=== PATIENT | female | born 1970 | race Asian ===

== ENCOUNTER 2025-01-15 08:47 | Outpatient (AMB) | payer OTHER, SELFPAY ==
--- NOTE | 2025-01-15 08:51 | MHC.OFFVIS ---
Vital Signs 01/15/25 08:54 Height 4 ft 11 in Weight 108 lb BMI 21.8 BP 130/70 Blood Pressure Location Lt brachial Position Sitting Pulse 61 Intake Visit Reasons: Colonoscopy Screening Intake Note: Patient new consult for 3rd pre Colonoscopy screening. Patient cc: GERD on and off, abdominal cramps, diarrhea on and off, also patient is dx with Achalasia and have a surgery in 2016. Pulp Screen Operator Required: No Accompanied by: Self / Same As Patient Allergies penicilin Allergy (Mild, Uncoded 01/15/25 08:50) Unknown Medication List - Last Reconciled 01/15/25 by Amy Amanda CNP multivitamin 1 tab PO DAILY topiramate 50 mg PO BEDTIME HPI HPI Colonoscopy Screening: Details: Patient is a 54-year-old female with PMH of migraines, seizure disorder. Referred by [place] provider for pre colonoscopy screening. Last colonoscopy: 2015, polyps noted; prior colonoscopy in [place], [place], and at [place] (dates unspecified). Endorses year-long hx of alternating constipation and diarrhea, with episodes of diarrhea occurring several times per week and constipation managed with milk of magnesia PRN. Reports escalation in heartburn and reflux sx, now ~2x/wk, and progressive dysphagia, primarily to solids, with recent difficulty swallowing semi-solids (e.g., pudding). Nausea has increased over past 3?6 mos, with rare emesis (last ~2 wks ago). No significant unintentional wt loss; wt stable at 108 lbs per pt. Subjective hx of achalasia (dx 2016, s/p surgical intervention), prior polyps on colonoscopy (2016), and unconfirmed Crohn?s dz (managed with diet, no resection). No recent GI hospitalizations. Reports post-anesthesia intolerance with prior ED visits for nausea/emesis post-op. No known family hx of colon or stomach CA; mother with diverticular dz. No tobacco, alcohol, or recreational drug use reported. Patient denies: fever/chills, appetite changes, regurgitation or melena/hematochezia. Social hx: -ETOH use couple x/month -denies recreational drug use -non-smoker - family hx as below -denies significant cardiopulmonary history -post sedation/anesthesia nausea and vomiting, otherwise tolerated without difficulty. [facility] Medical History (Updated 01/15/25 @ 10:16 by Amy Amanda CNP) Dysphagia Change in stool Colon cancer screening Surgical History (Updated 01/15/25 @ 09:05 by Pari Sanford) Hx of myomectomy H/O esophagogastroduodenoscopy History of hysterectomy Family History (Updated 01/15/25 @ 09:37 by Amy Amanda CNP) Mother Diverticular disease of colon Social History (Updated 01/15/25 @ 08:53 by Pari Sanford) Household Members: Family Alcohol intake: never Patient Tobacco Use Status: Never used Tobacco Physical Exam Vital Signs: Last Vital Signs Pulse 61 01/15/25 08:54 BP 130/70 01/15/25 08:54 BMI result Body Mass Index 21.8 Const General: healthy appearing, no acute distress and well developed Nutritional Appearance: average body habitus Orientation/consciousness: patient oriented x3 HEENT Head: Yes normal to inspection, Yes normocephalic and Yes atraumatic Face and sinus: Yes normal facial exam Eyes General: appearance normal, both eyes and all related structures Neck Neck: Yes normal visual inspection Resp Effort & Inspection: normal respiratory effort, able to speak in complete sentences, no tracheal deviation and symmetric chest movement Cardio Jugular venous distension: no JVD GI Inspection: Yes normal to inspection and No distended Palpation (GI): Soft to palpation, not firm, nontender and No hepatosplenomegaly present Auscultation: normal bowel sounds Neuro General: patient oriented x3 Gait exam (Neuro): Normal gait present Psych Appearance: grossly normal Mental Status: mental status grossly normal Speech and movement: Normal speech and movement present Affect: normal affect Attitude: cooperative Thought process: Normal thought process present Thought content: Normal thought content present Insight: Good insight present (Psych) Judgement: Good judgement present (Psych) Assessment & Plan Assessment & Plan (1) Colon cancer screening: Code(s): Z12.11 - Encounter for screening for malignant neoplasm of colon Category: Medical Plan: Due for CRC screening; personal hx of polyps, family hx diverticular dz, no confirmed CRC. Hx post-op nausea/emesis, ED visits post-anesthesia. Additional Testing: - Colonoscopy and upper endoscopy scheduled for CRC screening and further GI evaluation. Medications: - Premedication for antiemesis to be requested for sedation. Lifestyle Recommendations: - Encourage communication with anesthesia provider re: hx. Referrals / Coordination of Care: - Communicated to procedural team, premedication order placed. Follow-Up Plan: - Monitor immediate post-procedural course; assess for further intervention if recurrent. - Review colonoscopy/EGD results for CRC risk stratification and further management. (2) Change in stool: Code(s): R19.5 - Other fecal abnormalities Category: Medical Plan: Chronicity, previous polyps, dietary triggers?rule out IBD, infection, celiac. Additional Testing: - CBC, CMP, TSH: r/o metabolic contributors. - Celiac serology panel. - Stool studies (ova/parasites, C. diff, fecal calprotectin as indicated): r/o infection, inflammation. Medications: - Continue milk of magnesia PRN for constipation (pt satisfied with efficacy). - Offer Miralax as alternative for bowel regularity. Lifestyle Recommendations: - Maintain adequate hydration. - Increase dietary fiber as tolerated. - Avoid trigger foods and colored drinks before colonoscopy (per packet). - Provided pt education/packet for bowel prep and dietary guidance. Referrals / Coordination of Care: - Colonoscopy scheduled, upper endoscopy to be performed concurrently. Follow-Up Plan: - No routine f/u until post-procedural results unless abnormal labs or worsening sx. - Pt to contact office with significant changes or concerns. (3) Dysphagia: Code(s): R13.10 - Dysphagia, unspecified Category: Medical Qualifiers: Dysphagia type: unspecified Qualified Code(s): R13.10 - Dysphagia, unspecified Plan: Worsening dysphagia to solids, occasional swallowing difficulty with semi-solids (e.g., pudding); increasing reflux sx, rare emesis. Hx of surgical intervention, now increasing obstructive symptoms; requires direct visualization. Additional Testing: - Upper endoscopy to assess for stricture, progression, or other pathology. - Will consider swallow study if EGD unyielding. Medications: - None initiated/changed at this time for motility. Lifestyle Recommendations: - Continue reflux avoidance strategies: elevate HOB, avoid late-night meals, limit acidic and gplklhqfo-ca-lpltnlc foods. Referrals / Coordination of Care: - EGD scheduled, concurrent with colonoscopy. Follow-Up Plan: - Review findings after procedure; reassess tx approach if anatomic progression or new findings. (4) GERD (gastroesophageal reflux disease): Code(s): K21.9 - Gastro-esophageal reflux disease without esophagitis Category: Medical Qualifiers: Esophagitis presence: esophagitis presence not specified Qualified Code(s): K21.9 - Gastro-esophageal reflux disease without esophagitis Plan: Heartburn present ~2x/wk; managed by dietary restriction, no routine acid-suppressive meds used. Additional Testing: - Assessment during EGD. Medications: - Not started; consider trial of H2 collette or PPI post-endoscopy if indicated by findings/sx severity. Lifestyle Recommendations: - Reinforce symptom diary to monitor flare patterns. - Continue dietary modification, avoid acidic/irritant foods. Referrals / Coordination of Care: - None indicated at this time. Plan Follow-up after endoscopy or sooner as needed Time: I spent a total of 32 minutes on the date of encounter which includes: Preparing to see the patient (reviewed previous documentation, test results and medical history) Performing a medically appropriate exam and/or evaluation Ordering medications, tests, and procedures Documenting clinical information in the health record Orders: Orders C Reactive Protein Today R19.5 - Other fecal abnormalities Calprotectin, Fecal Today R19.5 - Other fecal abnormalities Fecal Fat Qualitative Today R19.5 - Other fecal abnormalities Leukocytes Stool Qualitative Today R19.5 - Other fecal abnormalities Complete Blood Count Auto Diff Today R19.5 - Other fecal abnormalities Transglutaminase IgA Today R19.5 - Other fecal abnormalities TSH reflex Free T4 Today R19.5 - Other fecal abnormalities GI Panel Today R19.5 - Other fecal abnormalities Comprehensive [place]. Panel Fast Today R19.5 - Other fecal abnormalities Referrals GI Procedure Notification K21.9 - Gastro-esophageal reflux disease without esophagitis, R19.5 - Other fecal abnormalities, Z12.11 - Encounter for screening for malignant neoplasm of colon, Z87.898 - Personal history of other specified conditions Medications: New polyethylene glycol 3350 (Miralax) per colonoscopy prep instructions 238 grams PO ONCE 238 grams 0RF bisacodyl take four tablets once day of colonoscopy prep 20 mg (4 x 5 mg) PO ONCE 4 tabs 0RF Coding Level of Care Code New Pt New Pt Level 3 (23535) Patient Type New Diagnoses Colon cancer screening Z12.11 Change in stool R19.5 Dysphagia, unspecified type R13.10 Dysphagia type: unspecified Gastroesophageal reflux disease, unspecified whether esophagitis present K21.9 Esophagitis presence: esophagitis presence not specified
[2025-01-15 08:54] VITALS: BP 130/70; PULSE 61; BMI 21.8
--- OUTSIDE RECORDS SUMMARY | 2025-01-15 08:57 | XMS_ITS | Clinical Summary ---
Author Organization [address] [facility] Address [address] [place] [address] Phone Care Team Providers Care Penal Officer Name Role Phone Krupa Frey NP Primary Care Provider Medications polyethylene glycol (Golytely) 236-22.74-6.74 -5.86 gram solution Take 4L by mouth once for one dose. May substitue any PEG. Starting at 6PM the night before your procedure drink 1 8oz glasses at your own pace until you complete half of the gallon. Finish 2nd half of the gallon 5 hours before your procedure. 4000 mL 5 Active bisacodyL (DULCOLAX) 5 mg EC tablet Take 2 tablets by mouth right before beginning bowel prep. See instructions provided by the office 2 tablet 5 Active Social History Tobacco Use Types Packs/Day Years Used Date Smoking Tobacco: Never Assessed Comments Unknown Sex and Gender Information Value Date Recorded Sex Assigned at Not on file Legal Sex Female 11:39 AM EDT Gender Identity Not on file Sexual Orientation Not on file Plan of Treatment Health Maintenance Due Date Last Done Comments Breast Cancer Screening 1970 Colorectal Cancer Screening: Colonoscopy 1970 DTaP,Tdap,and Td Vaccines (1 - Tdap) 1989 Hepatitis B Vaccines (1 of 3 - 19+ 3-dose series) 1989 Cervical Cancer Screening: P ap Smear 05/16/1991 Pneumococcal Vaccine: 50+ Ye ars (1 of 1 - PCV) 2020 Zoster Vaccines (1 of 2) 2020 HIV Screening 12/06/2023 Hepatitis C Screening 12/06/2023 Social Influencers of Health Screening 12/06/2023 Depression Screening 02/15/2024 COVID-19 Vaccine (1 - 2024-2 6 season) 2024 Influenza Vaccine (#1) 2024 RSV Immunization Adult Patie nts (1 - 1-dose 75+ series) 2045 HIB Vaccines Aged Out No longer eligi ble based on patient's age to complete this topic HPV Vaccines Aged Out No longer eligi ble based on patient's age to complete this topic Hepatitis A Vaccines Aged Out No long er eligible based on patient's age to complete this topic IPV Vaccines Aged Out No longer eligi ble based on patient's age to complete this topic MMR Vaccines Aged Out No longer eligi ble based on patient's age to complete this topic Meningococcal ACWY Vaccine Aged Out N o longer eligible based on patient's age to complete this topic Meningococcal B Vaccine Aged Out No l onger eligible based on patient's age to complete this topic RSV Immunization Patients Un ronda 20 months Aged Out No longer eligible b ased on patient's age to complete this topic Varicella Vaccines Aged Out No longer eligible based on patient's age to complete this topic Insurance [facility] Care Teams Penal Officer Relationship Specialty Start Date End Date Krupa Frey NP [address] [place] [phone] PCP - General Family Medicine 12/06/23
--- OUTSIDE RECORDS SUMMARY | 2025-01-15 08:57 | XMS_ITS | Encounter Summary ---
Author Organization [facility] Address [address] [facility] [address] [place] [address] Phone Care Team Providers Care U.[place]. Commissioner Name Role Phone Pcp, Not Required Primary Care Provider Mervin Nance MD Primary Care Provider [phone] Encounter Details Date Type Department Care Team (Late st Contact Info) Description 01/03/2022 Procedure Pass [facility], Ct Scan - [address] [address] Social History Tobacco Use Types Packs/Day Years Used Date Smoking Tobacco: Never Assessed Comments Unknown Sex and Gender Information Value Date Recorded Sex Assigned at Female 01/03/2022 1:25 PM EST Legal Sex Female 5:07 PM EST Gender Identity Female 01/03/2022 1:25 PM EST Sexual Orientation Choose not to disclose 2021 1:25 PM EST documented as of this encounter Functional Status * Calculated C-SSRS Risk Score (Lifetime/Recent) Answer Date of Assessment Author No Risk Indicated 01/05/2022 7:31 PM Leonie Fiore, RN * [place] Suicide Severity Rating Scale (Screener/Recent Self-Report) Question Answer Date of Assessment Author 1. Wish to be (Past 1 Month) No 022 7:31 PM Leonie Torres, RN 2. Non-Specific Active Suici sohail Thoughts (Past 1 Month) No 01/05/2022 7:31 PM Leonie Torres, RN 6. Suicidal Behavior (Lifetime) No 7:31 PM Leonie Torres, RN documented as of this encounter Plan of Treatment Not on file documented as of this encounter Visit Diagnoses Not on filedocumented in this encounter Additional Health Concerns Infection Onset Date Last Indicated Resolved Time CoV-Risk 01/05/2022 01/05/2022 01/16/2022 1:22 AM EST documented as of this encounter Care Teams U.[place]. Commissioner Relationship Specialty Start Date End Date Pcp, Not Required [address] [place] [id number] PCP - General 03/09/13 01/04/22 Mervin Ritter MD [address] [place] [id number] [email or web address] PCP - General Internal Medicine 01/05/22 documented as of this encounter Additional Source Comments The information contained in this document represents components of the legal health record. It is not the complete legal health record.[facility]
--- OUTSIDE RECORDS SUMMARY | 2025-01-15 08:57 | XMS_ITS | Encounter Summary ---
Author Organization [facility] Address [address] [facility] [address] [place] [address] Phone Care Team Providers Care Integration Aide Name Role Phone Pcp, Not Required Primary Care Provider Mervin Nance MD Primary Care Provider [phone] Encounter Details Date Type Department Care Team (Late st Contact Info) Description 01/04/2022 Procedure Pass [place] Admitting Dept - Virtual Department [address] [place] [address] Social History Tobacco Use Types Packs/Day Years Used Date Smoking Tobacco: Former Cigarettes Q uit: 04/14/2006 Smokeless Tobacco: Former Comments No Sex and Gender Information Value Date Recorded Sex Assigned at Female 01/03/2022 1:25 PM EST Legal Sex Female 5:07 PM EST Gender Identity Female 01/03/2022 1:25 PM EST Sexual Orientation Choose not to disclose 2021 1:25 PM EST documented as of this encounter Functional Status * Calculated C-SSRS Risk Score (Lifetime/Recent) Answer Date of Assessment Author No Risk Indicated 01/05/2022 7:31 PM EST Leonie Levy, RN * [place] Suicide Severity Rating Scale (Screener/Recent Self-Report) Question Answer Date of Assessment Author 1. Wish to be (Past 1 Month) No 022 7:31 PM Leonie Torres, RN 2. Non-Specific Active Suici sohail Thoughts (Past 1 Month) No 01/05/2022 7:31 PM Leonie Torres, RN 6. Suicidal Behavior (Lifetime) No 7:31 PM EST Leonie Garcia RN documented as of this encounter Plan of Treatment Not on file documented as of this encounter Visit Diagnoses Not on filedocumented in this encounter Additional Health Concerns Infection Onset Date Last Indicated Resolved Time CoV-Risk 01/05/2022 01/05/2022 01/16/2022 1:22 AM EST documented as of this encounter Care Teams Integration Aide Relationship Specialty Start Date End Date Pcp, Not Required [address] [place] [address] PCP - General 03/09/13 01/04/22 Mervin Ritter MD [address] [place] [id number] [email or web address] PCP - General Internal Medicine 01/05/22 documented as of this encounter Additional Source Comments The information contained in this document represents components of the legal health record. It is not the complete legal health record.[facility]
--- OUTSIDE RECORDS SUMMARY | 2025-01-15 08:57 | XMS_ITS | Encounter Summary ---
Author Organization [facility] Address [address] [facility] [address] [place] [address] Phone Care Team Providers Care Hand Box Coverer Name Role Phone Mervin Ritter MD Primary Care Provider [phone] Encounter Details Date Type Department Care Team (Late st Contact Info) Description 01/05/2022 Procedure Pass [facility], Ct Scan - [address] [address] Social History Tobacco Use Types Packs/Day Years [...] Date of Assessment Author No Risk Indicated 01/08/2022 9:49 AM Jil Kam, ULICES * [place] Suicide Severity Rating Scale (Screener/Recent Self-Report) Question Answer Date of Assessment Author 1. Wish to be (Past 1 Month) No 022 9:49 AM Jil Kam, ULICES 2. Non-Specific Active Suici sohail Thoughts (Past 1 Month) No 01/08/2022 9:49 AM Jil Kam, RN 6. Suicidal Behavior (Lifetime) No 9:49 AM Jil Kam, RN documented as of this encounter Plan of Treatment Not on file documented as of this encounter Visit Diagnoses Not on filedocumented in this encounter Additional Health Concerns Infection Onset Date Last Indicated Resolved Time CoV-Risk 01/05/2022 01/05/2022 01/16/2022 1:22 AM EST documented as of this encounter Care Teams Hand Box Coverer Relationship Specialty Start Date End Date Mervin Ritter MD [address] [place] [address] [email or web address] PCP - General Internal Medicine 01/05/22 documented as of this encounter Additional Source Comments The information contained in this document represents components of the legal health record. It is not the complete legal health record.[facility]
--- OUTSIDE RECORDS SUMMARY | 2025-01-15 08:57 | XMS_ITS | Clinical Summary ---
Author Organization [facility] Address [address] [place] [address] Phone Care Team Providers Care [employer] Name Role Phone Mervin iRtter MD Primary Care Provider [phone] Allergies Active Allergy Reactions Criticality Noted Date Comments Hazelnut Itching,Nausea Only 12/30/2010 Iodinated Contrast Media Hives High 09/23/2012 Lincosamides 01/23/2001 urticaria/diarrhea from clindamycin Pantoprazole 01/23/2013 Other reaction(s): Headache Penicillins Anaphylaxis,Seizure s High 04/28/2005 Pollen Extracts Other (See Comments) Low 12/16/2020 Dry nasal mucosa and congestion Medications estrogens, conjugated, (PREMARIN) 0.3 MG tablet Take 0.3 mg by mouth daily. Take daily for 21 days then do not take for 7 days. Active docusate sodium (COLACE) 100 MG capsule Take 1 capsule (100 mg total) by mouth 2 (two) times a day. 60 capsule 6 2 Active topiramate (TOPAMAX) 50 MG tablet Take 1 tablet by mouth 2 (two) times a day. 1 Active tiZANidine (ZANAFLEX) 2 MG tablet Take 1 tablet by mouth daily. 2 Active SUMAtriptan (IMITREX) 50 MG tablet Take 50 mg by mouth as needed. 1 Active rizatriptan (MAXALT-WATCH TRAIN INSPECTOR) 10 MG disintegrating tablet 10 mg. 2 Active hydrOXYzine (VISTARIL) 25 MG capsule Take 25 mg by mouth as needed. 2 Active polyvinyl alcohol-povidone, PF, (REFRESH CLASSIC) 1.4-0.6 % Dpet INSTILL ONE DROP IN BOTH EYES FOUR TIMES A DAY NEEDED FOR DRY EYES 2 Active magnesium hydroxide (MOM CONCENTRATED) 2,400 mg/10 mL Susp Active Active Problems Problem Noted Date Diagnosed Date S/P laparoscopic appendectomy 01/11/2022 Postoperative pain 01/04/2022 Immunizations Immunization Administration Dates Next Due Anthrax 10/28/2013, 1,04/05/2009,02/16,08/08/2006,09/15/2003,08/27/2003 ,08/05/2003 COVID-19 (Pre-12/06) Moderna Vaccine, Bivalent 6mo+ 12/29/2021 COVID-19 (Pre-12/06) Moderna Vaccine, mRNA, PF 07/02/2021,01/19/2021,07/08/2020,06/10 DTaP, unspecified formulation 03/05/2010 [id number] FORMULATION 01/14/2009 Hep A-Hep B 02/18/2004,07/20/2003,06/02/2003 INFLUENZA, SPLIT VIRUS, TRIVALENT PF 10/25/2015, 12/27/2014 INFLUENZA, SPLIT VIRUS, TRIV ALENT W/ PRESERVATIVE IM 11/22/2018,11/30/2017,11/04/2016,03/02,02/22/2013 IPV 06/02/2003 Influenza Quadrivalent Prese rvative Free IM 12/29/2021,10/28/2013 Influenza Split (Incl. Purif ied Surface Antigen) 11/28/2009,03/25/2006,12/18/2003 Influenza quadrivalent nasal 09/30/2010,10/27/19 09,12/08/2006 Influenza trivalent preserva tive free intradermal 05/12/2012 Influenza, Unspecified Formulation 11/24,01/22/2020,02/15/2016,12/27,11/14/2013,10/27/2013,02/14/2013 ,11/15/2011,11/14/2010,10/17/2010 MMR 07/28/2012,06/02/2003 Meningococcal MPSV4 06/02/2003 Novel [id number], Injectable 04/05/2009 Smallpox 08/05/2003 Td (adult),2 Lf Tetanus Toxo id, PF, Adsorbed 06/02/2003 Td, unspecified formulation 11/14/2009, 0 Tdap 10/21/2021,03/05/2010,08/15/2009 Typhoid, ViCPs 05/28/2009,08/08/2006,06/02/2003 Yellow Fever 06/02/2003 Zoster recombinant 10/21/2021 Family History Medical History Relation Comments CV disease Mother 2 Hypertension Mother 2 Relation Status Comments Mother 1 Alive Mother 2 Social History Tobacco Use Types Packs/Day Years Used Date Smoking Tobacco: Former Cigarettes Q uit: 04/14/2006 Smokeless Tobacco: Former Tobacco Cessation:Counseling Given: Not Answered Education Answer Date Recorded Are you interested in more education? Not on erika e 06/13/2022 Are you concerned about learning? Not on file 06/13/2022 No 06/13/2022 No 06/13/2022 Digital Access Answer Date Recorded No 07/11/2022 No 07/11/2022 Reliable internet access at home? Not on file 07/11/2022 Device with a working camera? Not on file Comments No Sex and Gender Information Value Date Recorded Sex Assigned at Female 01/03/2022 1:25 PM EST Legal Sex Female 5:07 PM EST Gender Identity Female 01/03/2022 1:25 PM EST Sexual Orientation Choose not to disclose 2021 1:25 PM EST Last Filed Vital Signs Vital Sign Reading Time Taken Comments Blood Pressure 124/76 01/11/2022 11:41 AM EST Pulse 66 01/11/2022 11:41 AM EST Temperature 36.4 C (97.6 F) 01/11/2022 11:41 AM EST Respiratory Rate 16 01/08/2022 2:56 PM EST Oxygen Saturation 100% 01/11/2022 11:41 AM EST Inhaled Oxygen Concentration - - Weight 49 kg (108 lb) 01/08/2022 9:48 AM EST Height 149.9 cm (4' 11 ) 01/08/2022 9:48 AM EST Body Mass Index 21.81 01/08/2022 9:48 AM EST Plan of Treatment Health Maintenance Due Date Last Done Comments LIPID PANEL 1970 DEPRESSION SCREENING 1982 SMOKING Hx and SMOKELESS TOBACCO SCREENING 05/16/1983 HEPATITIS C SCREENING 1988 HIV ONE-TIME SCREENING (18-65 YEARS) 1988 MAMMOGRAM 2010 COLOGUARD 05/16/2015 COLONOSCOPY 05/16/2015 COLORECTAL CANCER SCREENING 05/16/2015 FIT TEST 05/16/2015 FOBT 05/16/2015 SIGMOIDOSCOPY 05/16/2015 VIRTUAL COLONOSCOPY 05/16/2015 PNEUMOCOCCAL VACCINES (50+ years) (1 of 1 - PCV) 2020 ZOSTER VACCINES (2 of 2) 12/16/2021 10/21/2021 INFLUENZA VACCINE (#1) 2024 2, 11/24/2020, 01/22/2020, Additional history exists COVID-19 VACCINE ( season) 2024 12/29/2021, 07/02/2021, 01/19/2021, Additional history exists Adult Td,Tdap Booster 10/22/2031 10/21/2021 , 03/05/2010, 11/14/2009, Additional history exists RSV VACCINE (1 - 1-dose 75+ series) 2045 MENINGOCOCCAL VACCINES (ACWY) Aged Out 06/02/2003 No longer eligible based on patient's age to complete this topic HEPATITIS A VACCINES Aged Out 02/18/2004, 07/20/2003, 06/02/2003 No longer eligible based on patient's age to complete this topic HIB VACCINES Aged Out No longer eligi ble based on patient's age to complete this topic MENINGOCOCCAL VACCINES (B) Aged Out N o longer eligible based on patient's age to complete this topic Medical Devices Not on file Insurance [facility] Care Teams [employer] Relationship Specialty Start Date End Date Mervin Ritter MD [address] [place] [phone] [email or web address] PCP - General Internal Medicine 01/05/22 Additional Source Comments The information contained in this document represents components of the legal health record. It is not the complete legal health record.[facility]
== END 2025-01-15 09:48 | disposition home or self-care (01) ==
LOC: HO.HGI 08:48
PROVIDERS: PCP Nurse Practitioner Family; Visit Provider Nurse Practitioner Family
DX: R19.5 Other fecal abnormalities (principal); R13.10 Dysphagia, unspecified; K21.9 Gastro-esophageal reflux disease without esophagitis
CPT/HCPCS: 99203

== ENCOUNTER → 2025-01-15 08:47 | Outpatient (BNVA) | payer OTHER, SELFPAY | PROVIDERS: PCP Nurse Practitioner Family; Visit Provider Nurse Practitioner Family | DX: Z12.11 Encounter for screening for malignant neoplasm of colon (principal); R19.5 Other fecal abnormalities; R13.10 Dysphagia, unspecified; K21.9 Gastro-esophageal reflux disease without esophagitis; Z87.898 Personal history of other specified conditions | CPT/HCPCS: 99202 ==